=== PATIENT | female | born 1955 | race Caucasian/White ===

== ENCOUNTER → 2019-05-16 | Outpatient (REF) | payer OTHER ==
[~2019-05-16] MED LIST: PHEN30CA2 PO; ZOLO50TA PO
== END ==
LOC: M SFHCRHEU 11:08
PROVIDERS: ATTEND Internal Medicine
DX: R76.8 Other specified abnormal immunological findings in serum (principal)

== ENCOUNTER → 2022-12-14 | Outpatient (CLI) | payer MEDICARE, OTHER ==
[~2022-12-14] MED LIST changes: -PHEN30CA2 PO; +PHEN30CA21 PO
== END ==
LOC: M RAD 09:10
PROVIDERS: ATTEND Specialist
DX: R31.0 Gross hematuria (principal)

== ENCOUNTER → 2023-01-03 | Outpatient (CLI) | payer MEDICARE, BC, OTHER ==
[~2023-01-03] MED LIST changes: +ISOVUE-370 76% 100ML VIAL As Ordered ONE
== END ==
LOC: M RAD 06:55
PROVIDERS: ATTEND Specialist
DX: R31.0 Gross hematuria (principal)
CPT/HCPCS: 74178; Q9967